=== PATIENT | female | born 1980 | race Hispanic/Latino ===

== ENCOUNTER 2020-01-13 14:28 | Emergency (ER) | payer SELFPAY ==
[2020-01-13] MEDS ORDERED: Morphine 4 MG/ML VIAL ONE (15:22)
[2020-01-13 15:44] LABS: #Eosinphils 0.1 thou/uL (0.0-0.7); #Lymphocytes 1.1 thou/uL (1.20-3.40); #Monocytes 0.6 thou/uL (0.11-0.59); %Basophils 0.3 % (0.0-1.0); %Eosinophils 0.5 % (0.0-10.0); %Lymphocytes 8.1 % (21.0-51.0); %Monocytes 4.5 % (0.0-10.0); %Neutrophils 86.6 % (42.0-75.0); Hemoglobin 13.5 g/dL (12.0-16.0); Mean Corpuscular HGB CONC 34.3 g/dL (32.0-36.0); Mean Corpuscular Hemoglobin 30.9 pg (27.0-31.0); Mean Corpuscular Volume 90.1 fL (78.0-98.0); Mean Platelet Volume 7.5 fL (7.4-10.4); Platelet Count 276 thou/uL (130-400); RBC Distribution Width 12.6 % (11.5-14.5); Red Blood Cell (RBC) Count 4.39 mill/uL (4.20-5.40); White Blood Cell (WBC) Count 13.8 thou/uL (4.8-10.8)
--- NOTE | 2020-01-13 16:33 | ULT ---
Pelvic sonogram transabdominal and transvaginal imaging HISTORY: Pelvic pain. Miscarriage. FINDINGS: Urinary bladder is incompletely distended. Uterus has a heterogeneous echotexture and measu res up to 16.0 cm. Endometrium is 2.0 cm. Nabothian cyst on the uterine cervix is 0.2 cm. No free fluid is evident within the pelvis. Neither ovary is visualized with transabdominal or transvaginal imaging. No adnexal masses apparent. IMPRESSION : Enlarged uterus with thickened endometrium, consistent with reported history of recent spontaneous ab ortion. No evidence of retained products of conception.
== END 2020-01-13 19:05 | disposition home or self-care (01) ==
LOC: ERS 14:28
DX: O03.9 Complete or unspecified spontaneous abortion without complication (principal); O24.912 Unspecified diabetes mellitus in pregnancy, second trimester; O99.341 Other mental disorders complicating pregnancy, first trimester; F41.9 Anxiety disorder, unspecified; O16.1 Unspecified maternal hypertension, first trimester; Z79.4 Long term (current) use of insulin; Z79.899 Other long term (current) drug therapy; Z3A.15 15 weeks gestation of pregnancy
CPT/HCPCS: 76856; 85025; 86900; 86901; 88300; 88305; 96374; J2270